=== PATIENT | female | born 1960 | race Caucasian/White ===

== ENCOUNTER 2017-04-25 08:06 | Day surgery (SDC) | payer MEDICAID ==
[~2017-04-25] VITALS: Ht 154.9 cm; Wt 54.9 kg
[~2017-04-25 08:06] MED LIST: TRAZ-123 PO; [UNRECOGNIZED DRUG - OTHER]
[2017-04-25] MEDS ORDERED: MIDAZOLAM HCL 5 MG/5 ML VIAL ONE (08:24)
[2017-04-25] MEDS ORDERED: MEPERIDINE HCL/PF 100 MG/ML AMP ONE (08:24)
[2017-04-25] MEDS ORDERED: MEPERIDINE HCL/PF 100 MG/ML AMP IV ONE ×2 (09:26→09:36)
[2017-04-25] MEDS ORDERED: MIDAZOLAM HCL 5 MG/5 ML VIAL IVP ONE ×4 (09:28→09:34)
[2017-04-25 17:41] VITALS: BP_SYST 110
== END 2017-04-25 11:00 | disposition home or self-care (01) ==
LOC: SMU 08:06 → SDS 08:06
PROVIDERS: ATTEND Internal Medicine Gastroenterology
DX: K59.00 Constipation, unspecified (principal); K57.30 Diverticulosis of large intestine without perforation or abscess without bleeding; K64.8 Other hemorrhoids; E03.9 Hypothyroidism, unspecified; M79.7 Fibromyalgia; E78.5 Hyperlipidemia, unspecified
CPT/HCPCS: 45378; J2175; J2250; J7030